=== PATIENT | female | born 1955 | race Caucasian/White ===

== ENCOUNTER → 2017-05-11 | Day surgery (SDC) | payer BC ==
[~2017-05-11] MED LIST: DESFLURANE 61 TO 120 MINUTES IH; DEXAMETHASONE SOD PHOS 20 MG/5 ML VIAL.; GLYCOPYRROLATE 1 MG/5 ML VIAL.; HYDROmorphone 2 MG/ML VIAL IV; LIDOCAINE 1% PF 2 ML VIAL. ID; LIDOCAINE 2% PF Vial for OR 5 ML VIAL.; MIDAZOLAM HCL/PF 2 MG/2 ML VIAL.; MORPHINE SULFATE 2 MG/ML DISP.SYRIN. IV; ONDANSETRON PF 4 MG/2 ML VIAL.; ONDANSETRON PF 4 MG/2 ML VIAL. IV; PHENYLEPHRINE 10 MG/ML VIAL.; PROCHLORPERAZINE 10 MG/2 ML VIAL. IV; PROPOFOL 20 ML IV; REMIFENTANIL 1 MG VIAL. IV; ROCURONIUM 50 MG/5 ML VIAL.; ceFAZolin 2GM PREMIX 2 GM/50 ML BAG IV; fentaNYL PF VIAL 100 MCG/2 ML VIAL; fentaNYL PF VIAL 100 MCG/2 ML VIAL IV
[2017-05-11] MEDS: IV RINGERS,LACTATED 1000ML 1,000 ML IV (07:42)
[2017-05-11] MEDS: GELATIN SPONGE SIZE 100. (09:28)
[2017-05-11] MEDS: BUPIVAC MPF-EPI 0.75%-1:200000 30 ML VIAL. (09:28)
[2017-05-11] MEDS: THROMBIN TOPICAL 20,000 UNIT SPRAY.SYRN KIT TP (09:28)
[2017-05-11] MEDS: KETOROLAC 60 MG/2 ML INJ FOR OR. (09:28)
[2017-05-11] MEDS: BACITRACIN 50,000 UNIT in IV NORMAL SALINE 1000ML BAG 1,000 ML IRR (09:28)
[2017-05-11] MEDS: traMADol 50 MG TABLET PO (11:42)
== END | disposition home or self-care (01) ==
LOC: SURG 06:53
DX: M51.16 Intervertebral disc disorders with radiculopathy, lumbar region (principal); M19.90 Unspecified osteoarthritis, unspecified site; Z98.42 Cataract extraction status, left eye; Z86.69 Personal history of other diseases of the nervous system and sense organs; Z87.39 Personal history of other diseases of the musculoskeletal system and connective tissue; Z88.1 Allergy status to other antibiotic agents; Z88.2 Allergy status to sulfonamides; Z88.8 Allergy status to other drugs, medicaments and biological substances
CPT/HCPCS: 63030; 76000; 88304; 97162-GP; 97530-GP; G8978-CL-GP; G8979-CL-GP; G8980-CL-GP; J0690; J1100; J1885; J2250; J2405; J2704; J3010; J3490; J7030

== ENCOUNTER → 2018-07-13 | Outpatient (CLI) | payer BC ==
[2017-05-11 12:34] VITALS: BP 94/53
[~2018-07-13] MED LIST changes: +ALEN70TA3 PO; +CALC500T30 PO; +CHOL10003 PO; +CYCL10TA2 PO; -DESFLURANE 61 TO 120 MINUTES IH; -DEXAMETHASONE SOD PHOS 20 MG/5 ML VIAL.; +DICL100G18 TP; +DOCU-109 PO; +FOLI1TAB16 PO; -GLYCOPYRROLATE 1 MG/5 ML VIAL.; +HYDR-2679 PO; +HYDR200T5 PO; +HYDR200T71 PO; -HYDROmorphone 2 MG/ML VIAL IV; +IBUP-1027 PO; -LIDOCAINE 1% PF 2 ML VIAL. ID; -LIDOCAINE 2% PF Vial for OR 5 ML VIAL.; +MAGN400O7 PO; +METH25VI27 SQ; -MIDAZOLAM HCL/PF 2 MG/2 ML VIAL.; -MORPHINE SULFATE 2 MG/ML DISP.SYRIN. IV; +MULT-55 PO; -ONDANSETRON PF 4 MG/2 ML VIAL.; -ONDANSETRON PF 4 MG/2 ML VIAL. IV; -PHENYLEPHRINE 10 MG/ML VIAL.; -PROCHLORPERAZINE 10 MG/2 ML VIAL. IV; -PROPOFOL 20 ML IV; -REMIFENTANIL 1 MG VIAL. IV; -ROCURONIUM 50 MG/5 ML VIAL.; +TOFA5TAB PO; +TRAM50TA PO; -ceFAZolin 2GM PREMIX 2 GM/50 ML BAG IV; -fentaNYL PF VIAL 100 MCG/2 ML VIAL; -fentaNYL PF VIAL 100 MCG/2 ML VIAL IV
--- NOTE | 2018-07-14 04:00 | PAIN ---
DATE OF SERVICE: 07/13/2018 INITIAL CONSULTATION FOR PAIN CLINIC CHIEF COMPLAINT: Low back and left greater than right lower extremity pain. HISTORY OF PRESENT ILLNESS: The patient is a 62-year-old female who presents with history of pain in the low back, bilateral lower extremities for many years, worse over the past 2-3 years. The patient has had lumbar surgery x 2, most recently in 2018, 05/11, with a diskectomy at the L2-L3 level with severe left herniation and radiculopathy at that time. The patient reports the pain is better with that, but still significant radiculopathy in the left side and pain radiating to the left anterior thigh, anterior lateral thigh, medial thigh, medial lower leg with numbness and tingling into the lower leg and foot as well. Pain across the low back into the right side also in a similar distribution, but not as severe. The patient reports it is worse with standing, walking and changing positions. She uses a wheelchair or a scooter when she can. She has a scooter with her today. The patient reports she is becoming more weak with time and it hurts too much to do any activity. She has had physical therapy in the past, chiropractic treatment, exercise as well as epidural injections, trigger point injections without significant decrease in pain long-term. Actually recently had seen her neurosurgeon who is recommending no surgery at this time. The patient did have a new MRI scan dated 06/19/2018 showing chronic degenerative scoliosis acquired worsening when compared to 2017 MRI, trefoil degeneration results in multifocal areas of canal and foraminal stenosis at L2-L3, L3-L4 and L4-L5, severe disk flattening at the L3-L4, broad-based posterior left lateral disk protrusion shown in the left lateral recess and left neural foramen and severe left foraminal stenosis, severe right foraminal stenosis with potential impingement on the right neural foramen at L4-L5 as well. The patient rates her disability from 0-10, 10 being the worst as a 9-10 with family and home responsibilities and self-care, 8 with recreation, 5 with social activity, 7 with occupation and all activities. The patient has tried tramadol, prednisone and Plaquenil. She reports the tramadol does help some. It takes the edge off of the pain, but does not relieve it. Prednisone helps slightly as well, only about 20% overall. The patient reports it is worse with walking, standing, changing positions, awakens her from sleep at least once or twice at night, does not affect her bowel or bladder control, but does affect her ability to walk significantly and again she has a walker or scooter, which she has with her today to ambulate. The patient describes the pain as constant, sharp, throbbing, stabbing and aching in the low back with radiating pain into the left greater than right lower extremity is noted. PAST MEDICAL HISTORY: The patient's past medical history is significant for cataracts and adrenal insufficiency in the past. PREVIOUS SURGERY: Include lumbar laminectomy in 2016 and also 2018, cataract extractions in the past and blepharoplasty, left knee scope, previous and previous tonsillectomy. CURRENT MEDICATIONS: Include Colace, Xeljanz. multivitamins, folic acid, tramadol, hydroxychloroquine that is Plaquenil, methotrexate, Fosamax, vitamin D3, calcium and milk of magnesia. ALLERGIES: THE PATIENT HAS ALLERGY TO TETANUS, BACTRIM, ERYTHROMYCIN, SULFA AND DILANTIN. FAMILY HISTORY: Significant for no major medical problems or conditions that she is aware of. SOCIAL HISTORY: The patient does not drink alcohol, does not smoke and does not use any illegal, illicit or recreational drugs. 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 REVIEW OF SYSTEMS: The patient's review of systems is positive for those items mentioned in history of present illness. All systems reviewed and otherwise negative. It is complete, full and well documented on the patient's chart. PHYSICAL EXAMINATION: VITAL SIGNS: The patient's blood pressure is 137/72, pulse is 87, respirations 16, temperature is 98.0 degrees Fahrenheit. Height is 5 feet 6 inches, weight is 165 pounds stated. GENERAL: The patient is awake, alert, oriented, appropriate, very pleasant demeanor. The patient accompanied by her spouse. HEENT: Head shows normocephalic and atraumatic. The patient is wearing eyeglasses. Extraocular movements are intact and symmetrical. Oral cavity: Mucous membranes are moist and pink. Dentition is intact. NECK: Shows anterior throat is supple without palpable lymphadenopathy noted. Swallow reflex is symmetrical. CHEST: Shows normal on inspection. Breath sounds are clear to auscultation bilaterally. HEART: Shows S1 and S2 clear. No murmurs are auscultated. ABDOMEN: Soft, nontender and nondistended. No palpable organomegaly is noted. No rebound or guarding demonstrated. Positive bowel sounds in all 4 quadrants. BACK: Shows spine grossly in the midline, normal-appearing cervical lordotic curvature, slight increase in thoracic kyphotic curvature and some flattening of the lumbar lordotic curvature. There is a well-healed surgical scar in the lumbar distribution. The patient's neck shows full rotational motion of the cervical spine, both laterally as well as extension and flexion without difficulty. Paraspinous musculature shows mildly tender, but only diffusely in the low cervical paraspinous musculature without atrophy, hypertrophy or trigger points and full rotation both laterally greater than 45 degrees as well as full extension, full forward flexion without difficulty. Lumbar spine shows on inspection again well-healed surgical scarring. Paraspinous musculature shows symmetrical, it is firm throughout the upper, middle and lower distribution of the paraspinous muscles with moderate tenderness in the middle and lower distribution, but not the upper distribution. Again, no trigger points, specifically no radiation of pain, no obvious atrophy, hypertrophy and appears roughly symmetrical. No tenderness over the spinous processes of sacrum or sacroiliac regions. The patient has good rotational motion of the lumbar spine both laterally as well as extension and flexion at 10 degrees and forward flexion 45 degrees without significant pain reported. EXTREMITIES: The patient's lower extremities show deep tendon reflexes 1+ in the patellar and tendo calcaneus tendons and are symmetrical. Motor exam shows dorsiflexion and extension approximately 4 on a scale of 5, but symmetrical, quadriceps and hamstring flexion approximately 3 to 4 with some jerky coordinated movement with quadriceps and hamstring flexion on the left, but not the right, which is more 4/5 strength. Peripheral pulses are 1+ posterior tibial. No peripheral edema is noted. No clubbing or cyanosis. Lower extremities are warm and dry to touch, equal in color and appearance. Straight leg raise is noted to be positive on the left at about 30 degrees decreasing with knee flexion, right side is positive at 45 degrees, decreased with knee flexion. Gaenslen's and Paco's maneuvers are grossly negative bilaterally. The patient's skin shows warm and dry, good turgor. No edema. No sores, rashes or bruising. The patient is able to stand, stand on her feet without difficulty, but has some slow purposeful movement getting up from the scooter to her feet, walks with a very unstable gait and does require assistance to ambulate again normally with a walker if not using her scooter, very shuffling gait, appears to favor the left lower extremity greater than the right with significant limp. IMPRESSION: 1. This is a 62-year-old female with long history of low back, bilateral lower extremity pain, worse on the left than the right, again worsening over the past 2-3 years status post lumbar decompressive surgery x 2 in 2016 and 2018 with persistent radicular pain, left greater than right lower extremity. 2. Recent evaluation with Neurosurgery not recommending any further surgery at this time. 3. MRI scan of the lumbar spine as noted. PLAN: Options were discussed with the patient and the patient's spouse who accompanied her to visit today including conservative medical management, physical therapy, interventional techniques and she has had all of these modalities without significant improvement in the past. She would like to pursue a spinal cord stimulator temporary trial placement and she indeed may be a good candidate for this with her current pain situation and no surgical indication at this time from Neurosurgery. We will have the patient obtain a psychiatric evaluation for clearance and start preauthorization for a spinal cord stimulator temporary lead placement. The patient will follow up once the psychiatric evaluation is completed and we will proceed at that time. EVITA ADAMES MD DR: LASHAE/benito JOB#: [id number] / [id number]
== END | disposition home or self-care (01) ==
LOC: PNCL 10:12
PROVIDERS: ATTEND Anesthesiology
DX: M79.604 Pain in right leg (principal); M54.5 Low back pain; M79.605 Pain in left leg; Z98.890 Other specified postprocedural states; Z88.7 Allergy status to serum and vaccine; Z88.2 Allergy status to sulfonamides; Z88.8 Allergy status to other drugs, medicaments and biological substances
CPT/HCPCS: G0463

== ENCOUNTER → 2018-10-22 | Outpatient (CLI) | payer MEDICARE, BC ==
[2017-05-11 12:34] VITALS: BP 94/53
[~2018-10-22] MED LIST changes: +LIDOCAINE 1% PF 2 ML VIAL. ONE; +PRED1TAB3 PO
--- NOTE | 2018-10-23 03:49 | PAIN ---
DATE OF SERVICE: 10/22/2018 PROGRESS NOTE FOR PAIN CLINIC DIAGNOSES: Lumbar radiculopathy with lumbar degenerative disk disease, lumbar spinal stenosis and post-lumbar laminectomy syndrome. HISTORY OF PRESENT ILLNESS: The patient is a 63-year-old female who returns for followup status post initial evaluation and preauthorization for spinal cord stimulator temporary lead placement. The patient has obtained this now, has cleared her psychiatric evaluation and has preauthorization, would like to proceed. The patient still has significant pain in the low back, bilateral lower extremities, posterior hips, posterior thighs as well as the mid and low back. She reports it is aching and sharp, tight, stabbing, radiating, becoming more constant, more severe, rates it 9 on a scale of 10 at its worst, 8-9 on average and 8 at its least in the past week and is an 8 today. The patient reports no new motor or sensory deficits and no new bowel or bladder incontinence, still significant pain as noted. The patient reports no new bowel or bladder incontinence or other complaints. PHYSICAL EXAMINATION: VITAL SIGNS: The patient's blood pressure 119/56, pulse 70, respirations 16 and temperature 97.9 degrees Fahrenheit. Height is 5 feet 6 inches and weight is 100 pounds. GENERAL: The patient is awake, alert, oriented, appropriate, very pleasant demeanor. The patient accompanied by her and her son. HEENT: Head is normocephalic and atraumatic. The patient wears eye glasses. Extraocular movements are intact and symmetrical. Oral cavity: Mucous membranes moist and pink. Dentition is intact. NECK: Shows anterior throat supple without palpable lymphadenopathy noted. Swallow reflex symmetrical. CHEST: Shows normal with inspection. Breath sounds clear to auscultation bilaterally. HEART: Shows S1 and S2 clear. ABDOMEN: Soft, nontender and nondistended. BACK: Shows spine with a rightward curvature, scoliosis as on previous exam. Well-healed surgical scars noted in the lumbar distribution. Lumbar paraspinous muscle shows symmetrical on inspection, with palpation shows some moderate tenderness diffusely bilaterally but only diffusely without radiation. EXTREMITIES: Lower extremities show deep tendon reflexes 1+ in the patellar and tendo-calcaneus tendons. Motor exam is approximately 3 on a scale 4 in the left quadriceps and 4/5 with right dorsiflexion and extension is 4/5 and equal as well. Peripheral pulses are 1+ posterior tibia. No peripheral edema is noted bilaterally. Options were discussed with the patient. The patient's old chart was reviewed as well as her current medication regimen updated. Current review of systems updated today as well. We will proceed with a spinal cord stimulator temporary lead placement x 2 with fluoroscopic guidance today. Risks were discussed including but not limited to bleeding, infection, possibility of epidural hematoma, subsequent neurologic compromise, dural puncture, headaches, spinal cord and/or nerve damage, exposure of fluoroscopy well as poor results regarding pain control. The patient understands and wished to proceed. The patient will return to the clinic in approximately 1 week for followup and removal of these temporary leads. We will have a spinal cord stimulator airline security representative, Abilio Blackmon, who was present today as well, present and available in the suite also and return for removal of the leads in approximately 1 week. DIAGNOSES: Lumbar radiculopathy with lumbar degenerative disk disease, lumbar spinal stenosis and post-lumbar laminectomy syndrome. PROCEDURE: Spinal cord stimulator lead placement x 2. The temporary leads under sterile prep and drape using local anesthetic. C-arm fluoroscopic guidance to ensure AP and lateral views, which were ensured with both leads to be posterior in the epidural space as well as midline. MEDICATION INJECTED: A 1% lidocaine for skin anesthesia prior to epidural needle insertion using a 14-gauge needle with stylet x 2, the [place]iVIPtead needle x 2. The insertion site at the T11-T12 interspace. Epidural space was entered without difficulty. Negative aspiration with preservative-free normal saline, loss of resistance technique. Spinal cord stimulator wire leads were then threaded under direct visualization with fluoroscopy and assured posteriorly with lateral views. In the midline, the first wire to rest at the superior electrode at the superior endplate of T8 vertebral level and the second at T9, again both verified posterior bilateral fluoroscopic view and midline with AP view. [place] were removed, stylets were removed. The wire leads were then sutured into place and the skin sterilely bandaged with Mastisol and Tegaderms and then reinforcing with gauze and tape as well. CONDITION AT DISCHARGE: Stable. The patient tolerated the procedure well and had no complications. EVITA ADAMES MD DR: LASHAE/benito JOB#: [id number] / [id number]
== END ==
LOC: PNCL 13:19
PROVIDERS: ATTEND Anesthesiology
DX: M51.16 Intervertebral disc disorders with radiculopathy, lumbar region (principal); M48.061 Spinal stenosis, lumbar region without neurogenic claudication; M96.1 Postlaminectomy syndrome, not elsewhere classified
CPT/HCPCS: 63650; C1897

== ENCOUNTER → 2018-10-29 | Outpatient (CLI) | payer MEDICARE ==
[2017-05-11 12:34] VITALS: BP 94/53
[~2018-10-29] MED LIST changes: -LIDOCAINE 1% PF 2 ML VIAL. ONE
--- NOTE | 2018-10-29 21:46 | PAIN ---
DATE OF SERVICE: 10/29/2018 PROGRESS NOTE FOR PAIN CLINIC DIAGNOSES: Lumbar radiculopathy with lumbar spinal stenosis, lumbar degenerative disk disease and lumbar post laminectomy syndrome. HISTORY OF PRESENT ILLNESS: The patient is a 63-year-old female who returns for followup following spinal cord stimulator temporary lead placement x 2. The patient did quite well, had some up and down days during the past week, reports that she has had overall doing better, she reports by about 50%-60%. The patient reports she had some good days and bad days but overall feels that it was quite helpful with the pain and reports that her family members noted that she was moving with much greater ease and comfort as well during the week. The patient reports no new motor or sensory deficits, still some significant pain in the low back and legs but much improved with the spinal cord stimulator temporary leads. The patient reports the pain was a 9 on a scale of 10 at its worst over the past week, 7-8 on average, 7 at its least and is a 7 today with radiating pain, aching, sharp, dull across the low back and into the lower extremities, mostly posterior in the gluteus and thighs and present essentially equal right and left at this time, although the left has been worse in the past. The patient reports no new changes and no new bowel or bladder incontinence or other complaints. PHYSICAL EXAMINATION: VITAL SIGNS: The patient's blood pressure is 106/69, pulse 81, respirations 18 and temperature is 98.3 degrees Fahrenheit. Height is 5 feet 6 inches and weight is 100 pounds. GENERAL: The patient is awake, alert, oriented, appropriate and very pleasant demeanor. HEENT: Head shows normocephalic and atraumatic. Extraocular movements are intact and symmetrical. The patient is wearing eyeglasses. Oral cavity: Mucous membranes moist and pink. Dentition is intact. NECK: Shows anterior throat supple without palpable lymphadenopathy noted. Swallow reflex symmetrical. CHEST: Shows normal on inspection. Breath sounds are clear to auscultation bilaterally. HEART: Shows S1 and S2 clear. No murmurs auscultated. ABDOMEN: Soft, nontender and nondistended. No palpable organomegaly is noted. No rebound or guarding demonstrated. BACK: Shows spine grossly in the midline. Normal-appearing thoracic kyphosis and lumbar lordotic curvature. The patient's spinal cord stimulator temporary leads are examined under sterile prep and drape and sutures were cut and this leads were removed x 2 with tips intact. Site clean and dry, no erythema, no significant tenderness and no drainage. The patient has good rotational motion of lumbar spine, both laterally as well as extension and flexion without significant difficulty. EXTREMITIES: The patient's lower extremities show deep tendon reflexes at 1+ in the patellar and tendo-calcaneus tendons. Motor exam is strong with dorsiflexion, extension, quadriceps and hamstring flexion, rate approximately a 3-4 on a scale of 4 with quadriceps on the left and 4/5 otherwise. Options were discussed with the patient. The patient's old chart was reviewed as well as her current medication regimen updated. Current review of systems updated today as well. We will initiate scheduling for a permanent spinal cord stimulator system placement as the patient reports her improvement was significant and she would like to proceed with a permanent placement and we will make those arrangements. The patient will return to the clinic as scheduled. EVITA ADAMES MD DR: LASHAE/benito JOB#: [id number] / [id number]
== END | disposition home or self-care (01) ==
LOC: PNCL 13:11
PROVIDERS: ATTEND Anesthesiology
DX: M51.16 Intervertebral disc disorders with radiculopathy, lumbar region (principal); M48.061 Spinal stenosis, lumbar region without neurogenic claudication; M96.1 Postlaminectomy syndrome, not elsewhere classified
CPT/HCPCS: G0463

== ENCOUNTER → 2019-04-11 | Outpatient (CLI) | payer MEDICARE ==
[2017-05-11 12:34] VITALS: BP 94/53
[~2019-04-11] MED LIST changes: +IOHEXOL 180 MG/ML 10 ML VIAL. ONE; +methylPREDNISolone ACETATE 40 MG/ML VIAL. ONE; +methylPREDNISolone ACETATE 80 MG/ML VIAL. ONE
--- NOTE | 2019-04-11 22:56 | PAIN ---
DATE OF SERVICE: 04/11/2019 PROGRESS NOTE FOR PAIN CLINIC DIAGNOSES: Lumbar radiculopathy with lumbar spinal stenosis, lumbar degenerative disk disease, post-lumbar laminectomy syndrome with spinal cord stimulator placement. HISTORY OF PRESENT ILLNESS: The patient is a 63-year-old female who returns for followup status post spinal cord stimulator trial and eventual permanent implant, which was done on 01/11/2019. The patient reports she did very well initially, but over the past several weeks as she had a fall at home and fell on her right side and has had difficulty getting the pain controlled and covered with her stimulator since that time in the low back and the right leg, right posterior gluteus, posterior thigh, posterior lateral thigh and anterior thigh occasionally, across the low back, much worse with weightbearing, standing and changing positions. The patient has a significant Guillain-Fulton syndrome and has a wheelchair or uses electric scooter for most of her ambulatory needs, but the patient does still walk and bear weight and she was doing very well until the fall several weeks ago. The patient reports the pain is an 8 on a scale of 10 at its worst over the past week, 7-8 on average, 7 at its least and is an 8 today. The patient reports it is worse with standing, weightbearing, better with sitting or lying down, does not awaken her from sleep at night. The stimulator has been working well, has had several adjustments with her [employer] viewer, but without significant decrease in the pain. The patient reports it is aching, sharp, dull, radiating, becoming more constant in the low back and right leg. PHYSICAL EXAMINATION: VITAL SIGNS: The patient's blood pressure is 123/80, pulse 83, respirations 18, temperature 98.3 degrees Fahrenheit, height is 5 feet 6 inches, and weight is 100 pounds. GENERAL: The patient is awake, alert, oriented, appropriate, very pleasant demeanor. The patient is accompanied by her . HEENT: Shows normocephalic, atraumatic. Extraocular muscles are intact and symmetrical. Oral cavity shows mucous membranes moist and pink. Dentition is intact. NECK: Shows anterior throat supple without palpable lymphadenopathy noted. Swallow reflex symmetrical. CHEST: Shows normal on inspection. Breath sounds are clear bilaterally. HEART: Shows S1, S2 clear. No murmurs auscultated. ABDOMEN: Soft, nontender, nondistended. No palpable organomegaly is noted. No rebound or guarding demonstrated. BACK: Shows spine grossly in the midline. Well-healed surgical scar noted in the lumbar distribution with some slight rightward scoliotic deviation in the lumbar distribution only, easily palpable spinal cord stimulator in the left paraspinous space. EXTREMITIES: The patient's lower extremities show deep tendon reflexes 1+ in the patellar and tendo calcaneus tendons. Motor exam is approximately 3-4 on a scale of 5 with dorsiflexion, extension, quadriceps and hamstring flexion on the right and 4/5 otherwise. Options were discussed with the patient and the patient's spouse who accompanied her to visit today. We will proceed with first checking the patient's spinal cord stimulator leads with fluoroscopy and also lumbar epidural steroid injection today. Risks were again discussed including, but not limited to bleeding, infection, possibility of epidural hematoma, subsequent neurological compromise, dural puncture, headaches, spinal cord and/or nerve damage, side effects of steroid medication and poor results regarding pain control. The patient understands and wished to proceed. The patient will return to clinic in approximately 2 weeks for followup. She was counseled on return appointment, activity level and side effects to be aware of. DIAGNOSES: Lumbar radiculopathy with lumbar spinal stenosis, lumbar degenerative disk disease, post-lumbar laminectomy syndrome. PROCEDURE: Lumbar epidural steroid injection, translaminar approach L4-L5 level using C-arm fluoroscopic guidance under sterile prep and drape using local anesthetic. MEDICATION INJECTED: A total of 120 mg Depo-Medrol plus 10 mL of preservative-free normal saline and 2 mL of contrast. CONDITION AT DISCHARGE: Stable. The patient tolerated procedure well, had no complications. EVITA ADAMES MD DR: LASHAE/benito JOB#: [id number] / [id number]
== END ==
LOC: PNCL 14:10
PROVIDERS: ATTEND Anesthesiology
DX: M51.16 Intervertebral disc disorders with radiculopathy, lumbar region (principal); M48.061 Spinal stenosis, lumbar region without neurogenic claudication; M96.1 Postlaminectomy syndrome, not elsewhere classified
CPT/HCPCS: 62323; J1030; J1040; Q9965

== ENCOUNTER → 2019-12-02 | Outpatient (CLI) | payer MEDICARE ==
[2017-05-11 12:34] VITALS: BP 94/53
[~2019-12-02] MED LIST changes: +CYCL1DRO EACHEYE; -DICL100G18 TP; +DICL100G54 TP
--- NOTE | 2019-12-02 14:05 | PDOC ---
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 Patient reports he did very well after the injection for about a month the pain was decreased by about 40 to 50% patient reports now is returning in the low back and the right lower extremity. Patient reports the pain is increasing with weightbearing sitting for prolonged periods changing position from sitting to standing getting out of bed to standing and using her electric scooter which she depends on for most of her transportation. Patient reports the pain is aching and sharp tight shooting in the right lower extremity has become more constant across the low back into the right posterior gluteus posterior lateral thigh lateral anterior thigh anterior medial thigh to the knee with some pain in the back of the left side as well but much less intense. Patient rates her pain as an 8-9 on scale 10 is worse over the past week 8 on average 6 at its least and is an 8 today. Patient reports no new motor or sensory deficits no new bowel or bladder incontinence or other compl aints. Physical Exam: VS: Blood pressure 138/89 pulse 85 respirations are 18 temperature 97.9 F weight is 104 pounds PE: PHYSICAL EXAMINATION: GENERAL: The patient is awake, alert, oriented, appropriate, very pleasant demeanor HEENT: Shows normocephalic, atraumatic. Patient wearing eyeglasses. Extraocular movements are intact and symmetrical. Oral cavity: Mucous membranes moist and pink. Dentition is intact. NECK: Shows anterior throat supple without palpable lymphadenopathy noted. Swallow reflex symmetrical. CHEST: Shows normal on inspection. Breath sounds are clear bilaterally. HEART: Shows S1, S2 clear. No murmurs auscultated. ABDOMEN: Soft, nontender, nondistended. No palpable organomegaly is noted. No rebound or guarding demonstrated. BACK: Shows spine with well-healed surgical scar in the lumbar distribution and some fairly significant leftward scoliosis in the lumbar distribution as well with mild increase in thoracic kyphosis.. Normal-appearing cervical lordotic curvature. There is slightly increased thoracic kyphosis, some minor flattening of the lumbar lordotic curvature. Lumbar paraspinous muscles shows on palpation some moderate tenderness diffusely throughout the upper, middle and lower distribution of the paraspinous muscles bilaterally and also into the lower thoracic paraspinous musculature, firm and tender, but without specific trigger points, without radiation of pain. The patient has good rotational motion of the lumbar spine, both laterally as well as extension and flexion without significant difficulty. No tenderness over the spinous processes, sacrum or sacroiliac regions. EXTREMITIES: Lower extremities show deep tendon reflexes 1+ in the patellar and tendo calcaneus tendons. Motor exam is 3-4 on a scale of 5 with right dorsiflexion, extension, quadriceps and hamstring flexion and 4/5 on the left. Peripheral pulses are 1+ posterior tibial. No peripheral edema is noted bilaterally. Lower extremities are warm and dry to touch, equal in color and appearance. The patient is able to stand on her own but requires some assistance she has significant weakness of both lower extremities and requires use of her scooter as well as the side rail of the bed in the bed itself to change position.. SKIN: Shows warm and dry, good turgor. No edema. No sores, rashes or bruising throughout. Options were discussed with the patient. The patient's old chart was reviewed and current medication regimen updated. [] Procedure: Procedure: Options were discussed with the patient and we will proceed with a lumbar epidural steroid injection, as states she did very well with these in the past. Risks were again discussed including but not limited to bleeding infection possibility of epidural hematoma and subsequent neurological compromise, dural puncture headache spinal cord and or nerve damage side effects of steroid medication and portals chronic pain control. Patient understands wished to proceed patient will return to clinic in approximately 2 weeks for follow-up was counseled as return appointment activity level and side effects to be aware of. Medication Injected: Med Injected: Procedure is lumbar epidural steroid injection under local anesthetic using sterile prep and drape at the L4-5 level using C-arm fluoroscopic guidance in both AP and lateral views medications injected is 120 mg Depo-Medrol +[]mL preservative-free normal saline and 2 mL Isovue for contrast- condition at dis charge is stable patient tolerated procedure well had no complications. Condition at Discharge: Condition at Discharge: Condition at discharge stable patient tolerated procedure well had no complications. Patient will follow up with [facility] client care representative for spinal cord stimulation adjustment as necessary EVITA ADAMES MD Dec 02, 2019 14:05
== END | disposition home or self-care (01) ==
LOC: PNCL 12:48
PROVIDERS: ATTEND Anesthesiology
DX: M51.16 Intervertebral disc disorders with radiculopathy, lumbar region (principal); M48.061 Spinal stenosis, lumbar region without neurogenic claudication; Z88.8 Allergy status to other drugs, medicaments and biological substances; Z79.899 Other long term (current) drug therapy
CPT/HCPCS: 62323; J1030; J1040; Q9965

== ENCOUNTER → 2020-02-25 | Outpatient (CLI) | payer MEDICARE ==
[2017-05-11 12:34] VITALS: BP 94/53
--- NOTE | 2020-02-25 14:13 | PDOC ---
Progress Note - Pain Clinic Date of Service: DOS: DATE: 02/25/20 TIME: 14:09 Diagnosis: Dx: Lumbar radiculopathy with lumbar degenerative disease lumbar spinal stenosis and post lumbar laminectomy syndrome History or Present Illness: HPI: 64-year-old female returns follow-up status post spinal cord stimulator implant and lumbar epidural steroid injection December 02, 2019. Patient ports did very well with that with about a 50% improvement pain returning down the low back specially on the right side into the right lateral thigh and anterior thigh patient reports is worse with standing weightbearing better with sitting or laying down does not awaken from sleep at night she still using a motorized scooter for most of her ambulatory needs as she has had previously patient reports that getting in and out of the chair or after sitting from standing and standing to sitting is exacerbated the pain as well but only to moderate extent patient reports it is getting worse over the past week or so her pain is been a 9 on scale 10 is worst 8 on average 7 its least and is an 8 today. Patient reports no new bowel or bladder incontinence no new motor or sensory deficits Physical Exam: VS: Blood pressure 124/72 pulse 80 respirations 18 temperature 98.3 F height is 5 feet 6 inches weight is 105 pounds PE: PHYSICAL EXAMINATION: GENERAL: The patient is awake, alert, oriented, appropriate, very pleasant demeanor HEENT: Shows normocephalic, atraumatic. Extraocular movements are intact and sy mmetrical. Oral cavity: Mucous membranes moist and pink. NECK: Shows anterior throat supple without palpable lymphadenopathy noted. Swallow reflex symmetrical. CHEST: Shows normal on inspection. Breath sounds are clear bilaterally, no rales rhonchi wheezes auscultated. HEART: Shows S1, S2 clear. No murmurs auscultated. ABDOMEN: Soft, nontender, nondistended. No palpable organomegaly is noted. No rebound or guarding demonstrated. BACK: Shows spine grossly in the midline. Normal-appearing cervical lordotic curvature. There is slightly increased thoracic kyphosis, flattening of the lumbar lordotic curvature, with well-healed surgical scarring and easily palpable spinal cord stimulator generator left of midline in the low back. Lumbar paraspinous muscles show symmetrical on inspection, on palpation shows some moderate tenderness diffusely throughout the upper, middle and lower distribution of the paraspinous muscles, but without specific trigger points, without radiation of pain. The patient has good rotational motion of the lumbar spine, both laterally as well as extension and flexion without significant difficulty. No tenderness over the spinous processes, sacrum or sacroiliac regions. EXTREMITIES: Lower extremities show deep tendon reflexes 1+ in the patellar and tendo calcaneus tendons. Motor exam is 3-4 on a scale of 5 with right dorsiflexion, extension, quadriceps and hamstring flexion and 4/5 on the left. Peripheral pulses are 1+ posterior tibial. No peripheral edema is noted bilaterally. SKIN: Shows warm and dry, good turgor. No edema. No sores, rashes or bruising throughout. Procedure: Procedure: Pressure discussed with the patient. Patient chart was reviewed as her current medication regimen updated current review of systems updated today as well. We will proceed with a second in the series lumbar epidural steroid injection today with fluoroscopic guidance. Risks were discussed including but not limited to: Bleeding, infection, possibility of epidural hematoma and subsequent neurological compromise, dural puncture, headaches, spinal cord and/or nerve damage, side effects of steroid medication, and poor results regarding pain control. Patient understands wished to proceed. Patient will return to clinic in approximate 2 weeks for follow-up was counseled as to return appointment activity level and side effects to be aware of. Medication Injected: Med Injected: Procedure is lumbar epidural steroid injection under local anesthetic using sterile prep and drape at the L4-5 level using C-arm fluoroscopic guidance in both AP and lateral views medications injected is 120 mg Depo-Medrol + 10 mL preservative-free normal saline and 2 mL contrast- condition at discharge is stable patient tolerated procedure well had no complications. Condition at Discharge: Condition at Discharge: Condition at discharge is stable, patient tolerated procedure well and had no complications. EVITA ADAMES MD Feb 25, 2020 14:13
== END | disposition home or self-care (01) ==
LOC: PNCL 13:10
PROVIDERS: ATTEND Anesthesiology
DX: M51.16 Intervertebral disc disorders with radiculopathy, lumbar region (principal); M48.061 Spinal stenosis, lumbar region without neurogenic claudication; M96.1 Postlaminectomy syndrome, not elsewhere classified; M06.9 Rheumatoid arthritis, unspecified; G62.9 Polyneuropathy, unspecified; Z88.1 Allergy status to other antibiotic agents; Z88.2 Allergy status to sulfonamides; Z88.8 Allergy status to other drugs, medicaments and biological substances; Z79.899 Other long term (current) drug therapy
CPT/HCPCS: 62323; J1030; J1040; Q9965

== ENCOUNTER → 2020-06-22 | Outpatient (CLI) | payer MEDICARE ==
[2017-05-11 12:34] VITALS: BP 94/53
[~2020-06-22] MED LIST changes: +BUPIVACAINE MPF 0.25% 10 ML VIAL. ONE; -methylPREDNISolone ACETATE 40 MG/ML VIAL. ONE
--- NOTE | 2020-06-22 14:58 | PDOC ---
Progress Note - Pain Clinic Date of Service: DOS: DATE: 06/22/20 TIME: 14:53 Diagnosis: Dx: Lumbar radiculopathy with lumbar degenerative disease lumbar spinal stenosis and post lumbar laminectomy syndrome with spinal cord stimulator implanted August 11, 2018 Right greater trochanteric bursitis History or Present Illness: HPI: 64-year female returns follow-up status post lumbar epidural steroid injection previous final cord stimulator implant July 2018. Patient ports doing very well with each of these and returned most recently from lumbar epidural steroid action February 25, 2020 with good reduction of pain for about 2 months with about 75 to 80% improvement now down about 50% improvement but her chief complaint today is right lateral hip pain. Patient reports is much worse with standing and ambulating changing positions especially from seated to standing or vice versa getting up out of bed first in the morning patient is using a motorized wheelchair and has partial paraplegia but rates her pain is a 9 on scale 10 is worse over the past week 7 on average and a 7 at its least is a 7 today patient ports aching and sharp tight on the right lateral thigh region to the lateral thigh and to the knee but not constantly. Patient reports it can be a constant pain when she is changing positions but when she relaxes or sits or lays on her left side is much better. Patient reports no loss of motor function no bowel or bladder incontinence. Patient stimulator she has been using consistently and feels that it is helpful although not as helpful as when it was first implanted and is keeping it charged daily. Physical Exam: VS: Blood pressure is 145/72 pulse 81 respirations 16 temperature 98.2 F height and weight were deferred per her request. PE: PHYSICAL EXAMINATION: GENERAL: The patient is awake, alert, oriented, appropriate, very pleasant demeanor HEENT: Shows normocephalic, atraumatic. Extraocular movements are intact and symmetrical. Oral cavity: Mucous membranes moist and pink. Dentition is intact. NECK: Shows anterior throat supple without palpable lymphadenopathy noted. Swallow reflex symmetrical. CHEST: Shows normal on inspection. Breath sounds are clear bilaterally, no rales or rhonchi. HEART: Shows S1, S2 clear. No murmurs auscultated. ABDOMEN: Soft, nontender, nondistended, flat. No palpable organomegaly is noted. BACK: Shows spine grossly in the midline. Normal-appearing cervical lordotic curvature. There is slightly increased thoracic kyphosis, some minor flattening of the lumbar lordotic curvature. Lumbar paraspinous muscles show symmetrical on inspection, on palpation shows some moderate tenderness diffusely throughout the upper, middle and lower distribution of the paraspinous muscles, but without specific trigger points, without radiation of pain. The patient has good rotational motion of the lumbar spine, both laterally as well as extension and flexion without significant difficulty. No tenderness over the spinous processes, sacrum or sacroiliac regions. EXTREMITIES: Lower extremities show deep tendon reflexes 1+ in the patellar and tendo calcaneus tendons. Motor exam is 3-4 on a scale of 5 with right dorsiflexion, extension, quadriceps and hamstring flexion and 4/5 on the left. Peripheral pulses are 1+ posterior tibial. No peripheral edema is noted bilaterally. Patient's right hip shows significant tenderness over the right gr eater trochanter very severely painful with even moderate palpation with patient withdrawing from the examining hand. Left side is only mildly tender. Lower extremities are warm and dry to touch, equal in color and appearance. SKIN: Shows warm and dry, good turgor. No edema. No sores, rashes or bruising throughout. Procedure: Procedure: Options discussed with the patient. Patient chart reviews her current medication regimen updated current review of systems updated today as well. We will proceed with a right greater trochanteric bursa injection with fluoroscopic guidance. Risk were discussed including but not limited to bleeding infection possibility of intravascular injection sequelae spread local anesthetic numbness side effects steroid medication exposure fluoroscopy and portals regarding pain control. Patient understands wished to proceed. Return to clinic in approximately 1 week for follow-up was counseled as return appointment activity level and side effects to be aware of. Medication Injected: Med Injected: Under sterile prep and drape patient in the supine position using C-arm fluoroscopic guidance the right greater trochanteric region of the lateral hip was sterilely prepped and draped. Using direct visualization with fluoroscopy and a 25-gauge 1-1/2 inch needle the greater trochanter was entered without difficulty and using 1.5 cc of contrast showed good spread of contrast within the greater trochanteric bursa without uptake or washout. At this time solution of 3 cc 0.25% ropivacaine and 80 mg Depo-Medrol was then injected into the bursa needle was removed and sterile bandage was applied. Patient tolerated procedure well and had no complications. Condition at Discharge: Condition at Discharge: Condition at discharge is stable, patient tolerated the procedure well and had no complications. EVITA ADAMES MD Jun 22, 2020 14:58
== END | disposition home or self-care (01) ==
LOC: PNCL 14:30
PROVIDERS: ATTEND Anesthesiology
DX: M70.61 Trochanteric bursitis, right hip (principal); M51.16 Intervertebral disc disorders with radiculopathy, lumbar region; M48.061 Spinal stenosis, lumbar region without neurogenic claudication; M96.1 Postlaminectomy syndrome, not elsewhere classified; M06.9 Rheumatoid arthritis, unspecified; Z79.899 Other long term (current) drug therapy; Z98.890 Other specified postprocedural states; Z88.1 Allergy status to other antibiotic agents; Z88.8 Allergy status to other drugs, medicaments and biological substances
CPT/HCPCS: 20610; 77002; J1040; J3490; Q9965

== ENCOUNTER → 2020-08-20 | Outpatient (CLI) | payer MEDICARE ==
[2017-05-11 12:34] VITALS: BP 94/53
[~2020-08-20] MED LIST changes: -BUPIVACAINE MPF 0.25% 10 ML VIAL. ONE; +methylPREDNISolone ACETATE 40 MG/ML VIAL. ONE
--- NOTE | 2020-08-20 15:42 | PDOC ---
Progress Note - Pain Clinic Date of Service: DOS: DATE: 08/20/20 TIME: 15:38 Diagnosis: Dx: Lumbar radiculopathy with lumbar degenerative disc disease lumbar spinal stenosis and post lumbar medication Right greater trochanteric bursitis History or Present Illness: HPI: 64-year-old female returns for follow-up status post spinal cord stimulator placement December 2018 patient also had lumbar epidural steroid injections most recently February 25, 2020 also right greater trochanteric bursa injection on of this year. Patient reports that she still has significant pain in the low back and is radiating to the right lower extremity more significantly in the lateral aspect of the thigh anterior thigh medial thigh medial lower leg and across the low back some on the left as well but much worse on the right patient reports that while the shots on the greater trochanter were helpful it did not last very long more than about a week or so. Patient reports no new motor or sensory deficits no bowel or bladder incontinence changes. Patient rates her pain as an 8 on scale 10 is worse over the past week 7 on average 7 its least is a 7 today. Patient describes pain is aching in the low back bilateral lower extremities tight also radiating constant in the leg can be severe with weight bearing. Patient reports is better with sitting and she usually is using a electric scooter to get around. Patient reports it does not awaken her from sleep at night. Patient reports no new motor or sensory deficits no new bowel or bladder changes. Physical Exam: VS: Blood pressure is 115/74 pulse 72 respirations 18 temperature 98.7 F height 5 f eet 6 inches weight is 108 pounds PE: PHYSICAL EXAMINATION: GENERAL: The patient is awake, alert, oriented, appropriate, very pleasant demeanor HEENT: Shows normocephalic, atraumatic. Extraocular movements are intact and symmetrical. Patient wearing eyeglasses oral cavity: Mucous membranes moist and pink. Dentition is intact. NECK: Shows anterior throat supple without palpable lymphadenopathy noted. Swallow reflex symmetrical. CHEST: Shows normal on inspection. Breath sounds are clear bilaterally, distant but no rales rhonchi or wheezes auscultated. HEART: Shows S1, S2 clear. No murmurs auscultated. ABDOMEN: Soft, nontender, nondistended, flat. No palpable organomegaly is noted. BACK: Shows spine grossly in the midline. Normal-appearing cervical lordotic curvature. There is mildly increased thoracic kyphosis, some flattening of the lumbar lordotic curvature, with well-healed surgical scarring noted and easily palpable spinal cord stimulator generator left of midline. Lumbar paraspinous muscles show symmetrical on inspection, on palpation shows some moderate tenderness diffusely throughout the upper, middle and lower distribution of the paraspinous muscles bilaterally and also into the lower thoracic paraspinous musculature, firm and tender, but without specific trigger points, without radiation of pain. The patient has good rotational motion of the lumbar spine, both laterally as well as extension and flexion without significant difficulty. EXTREMITIES: Lower extremities show deep tendon reflexes 1+ in the patellar and tendo calcaneus tendons. Motor exam is 4 on a scale of 5 with right dorsiflexion, extension, quadriceps and hamstring flexion and 4/5 on the left. Peripheral pulses are 1+ posterior tibial. No peripheral edema is noted bilaterally. Lower extremities are warm and dry to touch, equal in color and appearance. SKIN: Shows warm and dry, good turgor. No edema. No sores, rashes or bruising throughout. Procedure: Procedure: Options were discussed with the patient. Patient chart was reviewed as her current medication regimen updated current review of systems updated today as well. Spinal cord stimulator client service representative for [employer] stimulator is present today and will perform reprogramming of the stimulator. We will proceed with a lumbar epidural steroid injection today with fluoroscopic guidance. Risks were discussed including but not limited to: Bleeding, infection, possibility of epidural hematoma and subsequent neurological compromise, dural puncture, headaches, spinal cord and/or nerve damage, side effects of steroid medication, and poor results regarding pain control. Patient understands and wished to proceed. She will return to clinic in approximately 2 weeks for follow-up, was counseled as return appointment activity level and side effects to be aware of. Medication Injected: Med Injected: Procedure is lumbar epidural steroid injection under local anesthetic using sterile prep and drape at the L4-5 level using C-arm fluoroscopic guidance in both AP and lateral views medications injected is 120 mg Depo-Medrol + 10 mL pre servative-free normal saline and 2 mL contrast- condition at discharge is stable patient tolerated procedure well had no complications. Condition at Discharge: Condition at Discharge: Condition at discharge stable, patient tolerated procedure well and had no complications. EVITA ADAMES MD Aug 20, 2020 15:42
--- NOTE | 2020-08-20 15:43 | PDOC4 ---
PROCEDURE Procedure Patient was consented for lumbar epidural steroid injection. Risks were dis cussed including but not limited to: Bleeding, infection, possibility of epidural hematoma and subsequent neurological compromise, dural puncture, headaches, spinal cord and/or nerve damage, side effects of steroid medication, and poor results regarding pain control. Patient understands and wished to proceed. Procedure is lumbar epidural steroid injection under local anesthetic using sterile prep and drape at the L4 5 level using C-arm fluoroscopic guidance in both AP and lateral views medications injected is 120 mg Depo-Medrol + 10 mL preservative-free normal saline and 2 mL contrast- condition at discharge is stable patient tolerated procedure well had no complications. EVITA ADAMES MD Aug 20, 2020 15:43
== END | disposition home or self-care (01) ==
LOC: PNCL 14:08
PROVIDERS: ATTEND Anesthesiology
DX: M51.16 Intervertebral disc disorders with radiculopathy, lumbar region (principal); M48.061 Spinal stenosis, lumbar region without neurogenic claudication; M70.61 Trochanteric bursitis, right hip; M19.90 Unspecified osteoarthritis, unspecified site; Z79.899 Other long term (current) drug therapy; Z98.890 Other specified postprocedural states; Z88.1 Allergy status to other antibiotic agents; Z88.2 Allergy status to sulfonamides; Z88.8 Allergy status to other drugs, medicaments and biological substances
CPT/HCPCS: 62323; J1030; J1040; Q9965

== ENCOUNTER → 2020-11-11 | Outpatient (CLI) | payer MEDICARE ==
[2017-05-11 12:34] VITALS: BP 94/53
--- NOTE | 2020-11-12 08:39 | PDOC ---
Progress Note - Pain Clinic Date of Service: DOS: DATE: 11/12/20 TIME: 08:35 Diagnosis: Dx: Lumbar radiculopathy with lumbar degenerative disease lumbar spinal stenosis and lumbar postlaminectomy syndrome with lumbar spinal cord stimulator Right greater trochanteric bursitis History or Present Illness: HPI: 65-year-old female returns for follow-up status post lumbar epidural steroids in the past and right hip joint injection greater trochanter June of this year with very good results patient had a lumbar epidural steroid injection August 20, 2020 did very well with this with approximately 75% improvement for about 1 month. Patient reports after that the pain began to return in the low back and right greater than left lower extremities. Patient reports is worse with weight bearing and she is essentially limited to weightbearing from transfer for from her electric wheelchair to chair today as etc.. But with weightbearing patient reports that significant pain in the right lower extremity mostly the posterior gluteus lateral thigh anterior thigh medial thigh both sides but much worse on the right side. Patient new finding of medication change Tylenol 650 mg taking this twice daily now with some good results about 34% improvement. Patient scribes the pain low back and leg is aching sharp tight sore radiating can be constant and severe. Patient had a spinal cord stimulator recalibrated in July as well and this helped for a short period of time but is considering having that recalibrated again. Patient rates her pain as a 9 on scale 10 is worse over the past week 9 on average 8 its least and is an 8 today. Patient reports no new motor or sensory deficits. Physical Exam: VS: Blood pressure 120/72 pulse 90 respirations 16 temperature 98.9 F height and weight are deferred as the patient is in an electric wheelchair. PE: PHYSICAL EXAMINATION: GENERAL: The patient is awake, alert, oriented, appropriate, very pleasant in demeanor. HEENT: Shows normocephalic, atraumatic. Extraocular movements are intact and symmetrical. NECK: Shows anterior throat supple without palpable lymphadenopathy noted. Swallow reflex symmetrical. CHEST: Shows normal on inspection. Breath sounds are clear bilaterally, no rales rhonchi or wheeze. HEART: Shows S1, S2 clear. No murmurs auscultated. ABDOMEN: Soft, nontender, nondistended. BACK: Shows spine grossly in the midline. Normal-appearing cervical lordotic curvature. There is slightly increased thoracic kyphosis, some minor flattening of the lumbar lordotic curvature. Lumbar paraspinous muscles show symmetrical on inspection, on palpation shows some moderate tenderness diffusely throughout the upper, middle and lower distribution of the paraspinous muscles, but without specific trigger points, without radiation of pain. The patient has good rotational motion of the lumbar spine, both laterally as well as extension and flexion without significant difficulty. EXTREMITIES: Lower extremities show deep tendon reflexes 1+ in the patellar and tendo calcaneus tendons. Motor exam is 3 on a scale of 5 with right dorsiflexion, extension, quadriceps and hamstring flexion and 4/5 on the left. Peripheral pulses are 1+ posterior tibial. No peripheral edema is noted bilaterally. Lower extremities are warm and dry. SKIN: Shows warm and dry, good turgor. No edema. No sores, rashes or bruising throughout. Procedure: Procedure: Options were discussed with the patient. Patient's old chart was reviewed as her current medication regimen updated current review of systems updated today as well. We will proceed with a second in the series lumbar epidural steroid ejections today with fluoroscopic guidance. Risks were discussed including but not limited to: Bleeding, infection, possibility of epidural hematoma and subsequent neurological compromise, dural puncture, headaches, spinal cord and/or nerve damage, side effects of steroid medication, and poor results regarding pain control. Patient understands and wished to proceed. Patient will return to the clinic in approximate 2 weeks for follow-up, was counseled as return appointment, activity level, and side effects to be aware of. Medication Injected: Med Injected: Procedure is lumbar epidural steroid injection under local anesthetic using sterile prep and drape at the L4-5 level using C-arm fluoroscopic guidance in both AP and lateral views medications injected is 120 mg Depo-Medrol +10mL preservative-free normal saline and 2 mL contrast- condition at discharge is stable patient tolerated procedure well had no complications. Condition at Discharge: Condition at Discharge: Condition at discharge is stable, patient alert procedure well and had no complications. EVITA ADAMES MD Nov 12, 2020 08:39
--- NOTE | 2020-11-12 08:39 | PDOC4 ---
Procedure Note: Procedure Note: Patient was consented for lumbar epidural steroid injection. Risks were discussed including but not limited to: Bleeding, infection, possibility of epidural hematoma and subsequent neurological compromise, dural puncture, headaches, spinal cord and/or nerve damage, side effects of steroid medication, and poor results regarding pain control. Patient understands and wished to proceed. Procedure is lumbar epidural steroid injection under local anesthetic using sterile prep and drape at the L4-5 level using C-arm fluoroscopic guidance in both AP and lateral views medications injected is 120 mg Depo-Medrol +10mL preservative-free normal saline and 2 mL contrast- condition at discharge is stable patient tolerated procedure well had no complications. EVITA ADAMES MD Nov 12, 2020 08:39
== END | disposition home or self-care (01) ==
LOC: PNCL 14:10
PROVIDERS: ATTEND Anesthesiology
DX: M51.16 Intervertebral disc disorders with radiculopathy, lumbar region (principal); M48.061 Spinal stenosis, lumbar region without neurogenic claudication; M96.1 Postlaminectomy syndrome, not elsewhere classified; M70.61 Trochanteric bursitis, right hip; M19.90 Unspecified osteoarthritis, unspecified site; Z79.899 Other long term (current) drug therapy; Z98.890 Other specified postprocedural states; Z88.1 Allergy status to other antibiotic agents; Z88.2 Allergy status to sulfonamides; Z88.8 Allergy status to other drugs, medicaments and biological substances
CPT/HCPCS: 62323; J1030; J1040; Q9965

== ENCOUNTER → 2021-02-17 | Outpatient (CLI) | payer MEDICARE ==
[2017-05-11 12:34] VITALS: BP 94/53
[~2021-02-17] MED LIST changes: +CYCL10TA19 PO; -CYCL10TA2 PO; -MULT-55 PO; +MULT-684 PO
--- NOTE | 2021-02-17 14:48 | PDOC ---
Progress Note - Pain Clinic Date of Service: DOS: DATE: 02/17/21 TIME: 14:42 Diagnosis: Dx: Lumbar radiculopathy with lumbar degenerative disease lumbar spinal stenosis lumbar postlaminectomy syndrome Right greater trochanteric bursitis History or Present Illness: HPI: 65-year-old female returns for follow-up status post lumbar epidural steroid action most recently November 11, 2020. Patient reports he did very well with about DSM-V percent improvement initially but now about 40% improvement overall with pain in the low back bilateral lower extremities right greater than left into the posterior gluteus posterior lateral thigh left ankle pain in medial lower legs bilaterally again worse on the right side. Patient reports that her left side of her low back is beginning to give her some trouble as well as in the left leg which is unusual as her pain is primarily on the right side, in the past. Patient reports no new injuries no falls no motor or sensory deficits but significant fatigability with weightbearing and patient is using a motorized wheelchair. Patient describes pain as aching and sharp when standing and walking tight in the back radiating constant at times with standing and walking as well. Patient reports no bowel or bladder incontinence. Physical Exam: VS: Blood pressure is 95/51 pulse 78 respirations 18 temperature is 98.4 F height is 5 feet 6 inches weight is 110 pounds PE: PHYSICAL EXAMINATION: GENERAL: The patient is awake, alert, oriented, appropriate, very pleasant in demeanor HEENT: Shows normocephalic, atraumatic. Extraocular movements are intact and symmetrical. Oral cavity: Mucous membranes moist and pink. Dentition is intact. NECK: Shows anterior throat supple without palpable lymphadenopathy noted. Swallow reflex symmetrical. CHEST: Shows normal on inspection. Breath sounds are clear bilaterally, distant but no rales or rhonchi. HEART: Shows S1, S2 clear. No murmurs auscultated. ABDOMEN: Soft, nontender, nondistended. No palpable organomegaly is noted. BACK: Shows spine grossly in the midline in the upper thoracic distribution with some significant scoliosis again appreciated in the thoracic and lumbar distributions. Normal-appearing cervical lordotic curvature. There is increased thoracic kyphosis, some flattening of the lumbar lordotic curvature. Lumbar paraspinous muscles show symmetrical on inspection, on palpation shows some moderate tenderness diffusely throughout the upper, middle and lower distribution of the paraspinous muscles bilaterally and also into the lower thoracic paraspinous musculature, firm and tender, but without specific trigger points, without radiation of pain. The patient has good rotational motion of the lumbar spine, both laterally as well as extension and flexion without significant difficulty. EXTREMITIES: Lower extremities show deep tendon reflexes 1+ in the patellar and tendo calcaneus tendons. Motor exam is 3 on a scale of 5 with right dorsiflexion, extension, quadriceps and hamstring flexion and 4/5 on the left. Peripheral pulses are 1+ posterior tibial. No peripheral edema is noted bilaterally. Lower extremities are warm and dry. SKIN: Shows warm and dry, good turgor. No edema. No sores, rashes or bruising throughout. Procedure: Procedure: Options were discussed with the patient. Patient's old chart was reviewed, as well as her current medication regimen updated, current review of systems updated today as well. We will proceed with a lumbar epidural steroid injection today with fluoroscopic guidance. Risks were discussed including but not limited to: Bleeding, infection, possibility of epidural hematoma and subsequent neurological compromise, dural puncture, headaches, spinal cord and/or nerve damage, side effects of steroid medication, and poor results regarding pain control. Patient understands and wished to proceed. Patient will return to clinic in approximately 4 weeks for follow-up, was counseled as to return appointment, activity level, and side effects to be aware of. Medication Injected: Med Injected: Procedure is lumbar epidural steroid injection under local anesthetic using sterile prep and drape at the L4-5 level using C-arm fluoroscopic guidance in both AP and lateral views medications injected is 120 mg Depo-Medrol +10mL preservative-free normal saline and 2 mL contrast- condition at discharge is stable patient tolerated procedure well had no complications. Condition at Discharge: Condition at Discharge: Condition at discharge is stable, patient already the procedure well and had no complications. EVITA ADAMES MD Feb 17, 2021 14:48
--- NOTE | 2021-02-17 14:48 | PDOC4 ---
Procedure Note: ICD 10 Code: ICD 10 Code: M54.16 M4 8.06 M51.36 M 96.1 Procedure Note: Patient is consented for lumbar epidural steroid injection with fluoroscopic guidance. Risks were discussed including but not limited to: Bleeding, infection, possibility of epidural hematoma and subsequent neurological compromise, dural puncture, headaches, spinal cord and/or nerve damage, side effects of steroid medication, and poor results regarding pain control. Patient understands and wished to proceed. Procedure is lumbar epidural steroid injection under local anesthetic using sterile prep and drape at the L4-5 level using C-arm fluoroscopic guidance in both AP and lateral views medications injected is 120 mg Depo-Medrol +10mL preservative-free normal saline and 2 mL contrast- condition at discharge is stable patient tolerated procedure well had no complications. EVITA ADAMES MD Feb 17, 2021 14:48
== END | disposition home or self-care (01) ==
LOC: PNCL 13:59
PROVIDERS: ATTEND Anesthesiology
DX: M51.16 Intervertebral disc disorders with radiculopathy, lumbar region (principal); M48.061 Spinal stenosis, lumbar region without neurogenic claudication; M96.1 Postlaminectomy syndrome, not elsewhere classified; M70.61 Trochanteric bursitis, right hip; M19.90 Unspecified osteoarthritis, unspecified site; Z79.899 Other long term (current) drug therapy; Z98.890 Other specified postprocedural states; Z88.1 Allergy status to other antibiotic agents; Z88.2 Allergy status to sulfonamides; Z88.8 Allergy status to other drugs, medicaments and biological substances
CPT/HCPCS: 62323; J1030; J1040; Q9965

== ENCOUNTER → 2021-05-25 | Outpatient (CLI) | payer MEDICARE ==
[2017-05-11 12:34] VITALS: BP 94/53
[~2021-05-25] MED LIST changes: -methylPREDNISolone ACETATE 40 MG/ML VIAL. ONE
--- NOTE | 2021-05-25 13:53 | PDOC ---
Progress Note - Pain Clinic Date of Service: DOS: DATE: 05/25/21 TIME: 13:49 Diagnosis: Dx: Lumbar radiculopathy with lumbar degenerative disc disease lumbar spinal stenosis and lumbar postlaminectomy syndrome Right greater trochanteric bursitis History or Present Illness: HPI: 65-year-old female returns for follow-up status post lumbar epidural steroid injection last seen February 17, 2021. Patient did very well with about 50% improvement specially with relief in the back until about the last week patient reports the pain began to return not to result of any specific injury or accident that she is aware of and now instead of only primarily on the right side is also on the left side as well in the low back and left lower extremity patient reports her low back is more noticeable on the left side than the right as well especially with changing positions and at night is much more noticeable when disturbing her from sleep patient reports her pain is a 9+ is worse over the past week 8 on average 7 at its least is a 7 today patient reports is aching dull sharp tight can be radiating constant severe again more on the left side now which is new for her as primarily only limited to the right leg. Patient reports worse this week has had her spinal cord stimulator generator reprogrammed about 2 days ago as well. Patient reports she has been taking tramadol generally less than once a day but is taking it twice a day for the past 2 days and is worried about addictive qualities to this we discussed this in detail and reassured patient that she is still at a reasonably low dose and hopefully after today's treatment will be not requiring as much as well. Patient reports no bowel or bladder changes no deficits but significant fatigability in the bilateral lower extremities. Physical Exam: VS: Blood pressure is 124 with a pulse 80 respirations 18 temperature 90.3 F height is 5 feet 6 inches weight 105 pounds. PE: PHYSICAL EXAMINATION: GENERAL: The patient is awake, alert, oriented, appropriate, very pleasant in demeanor HEENT: Shows normocephalic, atraumatic. Extraocular movements are intact and symmetrical. Patient wearing eyeglasses. Oral cavity: Mucous membranes moist and pink. Dentition is intact. NECK: Shows anterior throat supple without palpable lymphadenopathy noted. Swallow reflex symmetrical. CHEST: Shows normal on inspection. Breath sounds are clear bilaterally, distant but no rales or rhonchi. HEART: Shows S1, S2 clear. No murmurs auscultated. ABDOMEN: Soft, nontender, nondistended. No palpable organomegaly is noted. No rebound or guarding demonstrated. BACK: Shows spine grossly in the midline. Normal-appearing cervical lordotic curvature. There is moderately increased thoracic kyphosis, some moderate flattening of the lumbar lordotic curvature, with well-healed surgical scarring as well as easily palpable spinal cord stimulator with well-healed surgical scar as well.. Lumbar paraspinous muscles show symmetrical on inspection, on palpation shows some moderate tenderness diffusely throughout the upper, middle and lower distribution of the paraspinous muscles, but without specific trigger points, without radiation of pain. The patient has good rotational motion of the lumbar spine, both laterally as well as extension and flexion without significant difficulty. EXTREMITIES: Lower extremities show deep tendon reflexes 1 in the patellar and tendo calcaneus tendons. Motor exam is 3 on a scale of 5 with right dorsiflexion, extension, quadriceps and hamstring flexion and 4/5 on the left. Peripheral pulses are 1+ posterior tibial. No peripheral edema is noted bilaterally. Lower extremities are warm and dry to touch, equal in color and appearance. SKIN: Shows warm and dry, good turgor. No edema. No sores, rashes or bruising throughout. Procedure: Procedure: Options were discussed with the patient. Patient's old chart was viewed as her current medication regimen updated current review of systems updated today as well. We will proceed with a lumbar epidural steroid injection today with fluoroscopic guidance. Risks were discussed including but not limited to: Bleed ing, infection, possibility of epidural hematoma and subsequent neurological compromise, dural puncture, headaches, spinal cord and/or nerve damage, side effects of steroid medication, and poor results regarding pain control. Patient understands and wished to proceed. Patient will return to clinic in approximately 2 weeks for follow-up, was counseled as to return appointment, act ivity level, and side effects to be aware of. Medication Injected: Med Injected: Procedure is lumbar epidural steroid injection under local anesthetic using sterile prep and drape at the L4-5 level using C-arm fluoroscopic guidance in both AP and lateral views medications injected is 120 mg Depo-Medrol +10mL preservative-free normal saline and 2 mL contrast- condition at discharge is stable patient tolerated procedure well had no complications. Condition at Discharge: Condition at Discharge: Condition at discharge stable, paced tolerated procedure well had no complica tions. EVITA ADAMES MD May 25, 2021 13:53
--- NOTE | 2021-05-25 13:54 | PDOC4 ---
Procedure Note: ICD 10 Code: ICD 10 Code: M54.16 M51.36 M 48.06 M 96.1 Procedure Note: Patient was consented for lumbar epidural steroid injection with fluoroscopic guidance. Risks were discussed including but not limited to: Bleeding, infection, possibility of epidural hematoma and subsequent neurological compromise, dural puncture, headaches, spinal cord and/or nerve damage, side effects of steroid medication, and poor results regarding pain control. Patient understands and wished to proceed. Procedure is lumbar epidural steroid injection under local anesthetic using sterile prep and drape at the L4-5 level using C-arm fluoroscopic guidance in both AP and lateral views medications injected is 120 mg Depo-Medrol +10mL preservative-free normal saline and 2 mL contrast- condition at discharge is stable patient tolerated procedure well had no complications. EVITA ADAMES MD May 25, 2021 13:54
== END | disposition home or self-care (01) ==
LOC: PNCL 12:58
PROVIDERS: ATTEND Anesthesiology
DX: M51.16 Intervertebral disc disorders with radiculopathy, lumbar region (principal); M48.061 Spinal stenosis, lumbar region without neurogenic claudication; M96.1 Postlaminectomy syndrome, not elsewhere classified; M70.61 Trochanteric bursitis, right hip; M06.9 Rheumatoid arthritis, unspecified; Z79.899 Other long term (current) drug therapy; Z98.890 Other specified postprocedural states
CPT/HCPCS: 62323; J1040; Q9965

== ENCOUNTER → 2021-08-09 | Outpatient (CLI) | payer MEDICARE ==
[2017-05-11 12:34] VITALS: BP 94/53
[~2021-08-09] MED LIST changes: +DEXAMETHASONE PRES.FREE 10 MG/ML VIAL. ONE; -methylPREDNISolone ACETATE 80 MG/ML VIAL. ONE
--- NOTE | 2021-08-09 15:09 | PDOC ---
Progress Note - Pain Clinic Date of Service: DOS: DATE: 08/09/21 TIME: 15:06 Diagnosis: Dx: Lumbar radiculopathy with lumbar degenerative disease and lumbar spinal stenosis with lumbar postlaminectomy syndrome Right greater trochanteric bursitis History or Present Illness: HPI: C5-year[age]old female returns for follow-up status post lumbar epidural steroid injection x1 May 25, 2021. Patient reports she did very well with pain in her low back and the right lower extremity. Patient reports now both of her legs are increasingly painful and did not have a significant improvement about 35% after the last injection. Patient reports is getting worse with weightbearing transferring from wheelchair to bed and chair and vice versa patient reports awaken her from sleep about once a night but not most nights usually feels better with laying down or sitting patient reports that when she goes to get up the pain begins again significant in both lower extremities left equal to right posterior gluteus lateral thigh anterior thigh medial thigh medial lower leg patient reports aching in the back dull in the back tight and sharp in the legs shooting in the legs stabbing the legs as well as radiating can be constant severe at times with weightbearing patient rates it as a 10 on scale 10 is worse over the past week 9 on average 9 its least and is a 9 today. Patient reports no loss of motor function but significant fatigability of lower extremities greater than baseline as well as no new motor or sensory deficits no bowel or bladder incontinence. Physical Exam: VS: Blood pressure is 83/78 pulse 76 respirations 18 temperature 98.6 F height and weight were deferred as patient is in a wheelchair. PE: PHYSICAL EXAMINATION: GENERAL: The patient is awake, alert, oriented, appropriate, very pleasant in demeanor HEENT: Shows normocephalic, atraumatic. Extraocular movements are intact and symmetrical. Oral cavity: Mucous membranes moist and pink. Dentition is intact. NECK: Shows anterior throat supple without palpable lymphadenopathy noted. Swallow reflex symmetrical. CHEST: Shows normal on inspection. Breath sounds are clear bilaterally, distant but no rales or rhonchi auscultated. HEART: Shows S1, S2 clear. No murmurs auscultated. ABDOMEN: Soft, nontender, nondistended. No palpable organomegaly is noted. BACK: Shows spine grossly in the midline. Normal-appearing cervical lordotic curvature. There is slightly increased thoracic kyphosis, some minor flattening of the lumbar lordotic curvature. Lumbar paraspinous muscles show symmetrical on inspection, on palpation shows some moderate tenderness diffusely throughout the upper, middle and lower distribution of the paraspinous muscles without specific trigger points, without radiation of pain. The patient has good rotational motion of the lumbar spine, both laterally as well as extension and flexion without significant difficulty. EXTREMITIES: Lower extremities show deep tendon reflexes 1 in the patellar and tendo calcaneus tendons. Motor exam is 3 on a scale of 5 with right dorsiflexion, extension, quadriceps and hamstring flexion and 4/5 on the left. Peripheral pulses are 1 posterior tibial. No peripheral edema is noted bilaterally. Lower extremities are warm and dry. SKIN: Shows warm and dry, good turgor. No edema. No sores, rashes or bruising throughout. Procedure: Procedure: Options were discussed with the patient. Patient's chart was reviewed as her current medication regimen updated current review of systems updated today as well. We will proceed with a lumbar epidural steroid injection today with fluoroscopic guidance. Risks were discussed including but not limited to: Bleeding, infection, possibility of epidural hematoma and subsequent neurolo gical compromise, dural puncture, headaches, spinal cord and/or nerve damage, side effects of steroid medication, and poor results regarding pain control. Patient understands and wished to proceed. Patient return to clinic in approximately 2 weeks for follow-up, was counseled as to return appointment, activity level, and side effect to be aware of. Medication Injected: Med Injected: Procedure is lumbar epidural steroid injection under local anesthetic using sterile prep and drape at the L4-5 level using C-arm fluoroscopic guidance in both AP and lateral views medications injected is 120 mg methylprednisolone +10mL preservative-free normal saline and 2 mL contrast- condition at discharge is stable patient tolerated procedure well had no complications. Condition at Discharge: Condition at Discharge: Condition at discharge stable, patient tolerated procedure well and had no complications. EVITA ADAMES MD Aug 09, 2021 15:09
--- NOTE | 2021-08-09 15:10 | PDOC4 ---
Procedure Note: ICD 10 Code: ICD 10 Code: M54.16 M51.36 M48.06 M96.1 Procedure Note: Patient was consented for lumbar epidural steroid injection with fluoroscopic guidance. Risks were discussed including but not limited to: Bleeding, infection, possibility of epidural hematoma and subsequent neurological compromise, dural puncture, headaches, spinal cord and/or nerve damage, side effects of steroid medication, and poor results regarding pain control. Patient understands and wished to proceed. Procedure is lumbar epidural steroid injection under local anesthetic using sterile prep and drape at the L4-5 level using C-arm fluoroscopic guidance in both AP and lateral views medications injected is 120 mg methylprednisolone +10mL preservative-free normal saline and 2 mL contrast- condition at discharge is stable patient tolerated procedure well had no complications. EVITA ADAMES MD Aug 09, 2021 15:10
== END | disposition home or self-care (01) ==
LOC: PNCL 13:39
PROVIDERS: ATTEND Anesthesiology
DX: M51.16 Intervertebral disc disorders with radiculopathy, lumbar region (principal); M48.061 Spinal stenosis, lumbar region without neurogenic claudication; M96.1 Postlaminectomy syndrome, not elsewhere classified; M70.61 Trochanteric bursitis, right hip; M06.9 Rheumatoid arthritis, unspecified; Z79.899 Other long term (current) drug therapy; Z88.1 Allergy status to other antibiotic agents; Z88.8 Allergy status to other drugs, medicaments and biological substances; Z88.2 Allergy status to sulfonamides
CPT/HCPCS: 62323; J1100; Q9965